=== PATIENT | male | born 1970 | race Caucasian/White ===

== ENCOUNTER 2018-02-16 14:57 | Emergency (ER) | payer MEDICAID ==
[~2018-02-16] VITALS: Ht 185.4 cm; Wt 133.9 kg
[~2018-02-16 14:57] MED LIST: CLIN150C2 PO; CLON-527 PO; NORCO10T PO
[2018-02-16 15:15] VITALS: BP 166/118
== END 2018-02-16 15:50 | disposition home or self-care (01) ==
LOC: ER 14:57
DX: S01.01XD Laceration without foreign body of scalp, subsequent encounter (principal); I10 Essential (primary) hypertension; F12.90 Cannabis use, unspecified, uncomplicated; Z90.49 Acquired absence of other specified parts of digestive tract; Z88.5 Allergy status to narcotic agent; Z79.2 Long term (current) use of antibiotics; Z79.899 Other long term (current) drug therapy; W22.8XXD Striking against or struck by other objects, subsequent encounter
CPT/HCPCS: 99281

== ENCOUNTER 2019-01-02 13:21 | Emergency (ER) | payer MEDICAID ==
[~2019-01-02] VITALS: Ht 185.4 cm; Wt 144.0 kg
[2019-01-02 14:55] VITALS: BP 143/88
[2019-01-02 15:19] LABS: ALBUMIN 3.4 G/DL (3.4-5.0); ANION GAP 6 (8-16); BLOOD UREA NITROGEN 16 MG/DL (7-18); BUN/CREATININE RATIO 16.5 (5.4-32.0); CALCIUM 8.4 MG/DL (8.5-10.1); CHLORIDE 107 MMOL/L (99-107); CREATININE 0.97 MG/DL (0.60-1.10); GLUCOSE 127 MG/DL (70-104); SODIUM 140 MMOL/L (135-145); TOTAL CARBON DIOXIDE 26.9 MMOL/L (24-32); eGFR 83 ML/MIN
[2019-01-02] MEDS ORDERED: FURO-150 PO (15:25)
[2019-01-02] MEDS ORDERED: POTA10TA19 PO (15:25)
== END 2019-01-02 16:00 | disposition home or self-care (01) ==
LOC: ER 13:21
DX: R60.0 Localized edema (principal); J98.01 Acute bronchospasm; F17.210 Nicotine dependence, cigarettes, uncomplicated; I10 Essential (primary) hypertension; F12.90 Cannabis use, unspecified, uncomplicated; Z90.49 Acquired absence of other specified parts of digestive tract; Z88.5 Allergy status to narcotic agent; Z79.2 Long term (current) use of antibiotics; Z79.899 Other long term (current) drug therapy
CPT/HCPCS: 36415; 80048; 99283

== ENCOUNTER 2019-01-31 08:02 | Emergency (ER) | payer MEDICAID ==
[~2019-01-31] VITALS: Ht 185.4 cm; Wt 143.0 kg
[~2019-01-31 08:02] MED LIST changes: +FURO-150 PO
[2019-01-31 08:36] LABS: CLARITY,URINE CLEAR (Clear); COLOR,URINE YELLOW (Yellow); GLUCOSE, URINE NEGATIVE (Neg); KETONES,URINE NEGATIVE (Neg); LEUKOCYTE ESTERASE ,URINE NEGATIVE (Neg); NITRITES, URINE NEGATIVE (Neg); OCCULT BLOOD,URINE NEGATIVE (Neg); PH,URINE 6.5 (4.8-8.0); PROTEIN,URINE NEGATIVE (Neg); UROBILINOGEN,URINE 0.2 E.U/dL (0.2-1.0)
[2019-01-31 08:38] LABS: UA COLLECTION TYPE CLN CATCH MIDSTREAM
[2019-01-31] MEDS ORDERED: ipratropium/albuterol 3ml nebule NEB ONE (08:50)
[2019-01-31 09:11] VITALS: BP 145/75
[2019-01-31] MEDS ORDERED: traMADol 50MG tablet PO ONE (09:15)
[2019-01-31] MEDS ORDERED: ketorolac trometh inj. 60 MG/2 ML VIAL IM ONE (09:15)
[2019-01-31] MEDS ORDERED: CELE-193 PO (09:19)
[2019-01-31] MEDS ORDERED: ALBU8.5H8 IH (09:19)
== END 2019-01-31 09:39 | disposition home or self-care (01) ==
LOC: ER 08:03
DX: M54.5 Low back pain (principal); J44.9 Chronic obstructive pulmonary disease, unspecified; F12.90 Cannabis use, unspecified, uncomplicated; F10.10 Alcohol abuse, uncomplicated; Z90.49 Acquired absence of other specified parts of digestive tract; Z98.890 Other specified postprocedural states; Z88.5 Allergy status to narcotic agent; Z79.899 Other long term (current) drug therapy; Y90.9 Presence of alcohol in blood, level not specified
CPT/HCPCS: 81003; 94640; 94760; 96372; 99283; J1885

== ENCOUNTER 2019-08-30 13:20 | Emergency (ER) | payer MEDICAID ==
[~2019-08-30] VITALS: Ht 185.4 cm; Wt 136.4 kg
[~2019-08-30 13:20] MED LIST changes: +ALBU8.5H8 IH; +CELE-193 PO
[2019-08-30 13:21] VITALS: BP 150/109
[2019-08-30 14:16] LABS: CLARITY,URINE CLOUDY (Clear); GLUCOSE, URINE NEGATIVE (Neg); KETONES,URINE NEGATIVE (Neg); LEUKOCYTE ESTERASE ,URINE TRACE (Neg); NITRITES, URINE NEGATIVE (Neg); OCCULT BLOOD,URINE NEGATIVE (Neg); PROTEIN,URINE TRACE mg/dl (Neg)
[2019-08-30 14:18] LABS: UA COLLECTION TYPE CLN CATCH MIDSTREAM
[2019-08-30 14:19] LABS: COLOR,URINE DARK YELLOW (Yellow)
[2019-08-30] MEDS ORDERED: penicillin G benzathine 1.2 million unit/2ml syringe IM ONE (14:20)
[2019-08-30] MEDS ORDERED: azithromycin 250mg tablet PO ONE (14:20)
[2019-08-30] MEDS ORDERED: LIDOcaine 1% W/epiNEPHrine 1:200,000 10ml vial IJ ONE (14:20)
[2019-08-30] MEDS ORDERED: CefTRIAXone 250MG IM Kit w/LIDOcaine IM ONE (14:20)
[2019-08-30 14:23] LABS: MUCUS STRANDS MANY /LPF (Neg); SQUAMOUS EPITHELIAL CELL,UR MANY /LPF (FEW)
[2019-08-30 14:24] LABS: TRANSITIONAL EPI CELLS,URINE FEW /HPF; WBC CLUMPS,URINE FEW /HPF (NEGATIVE)
[2019-08-30 14:30] LABS: TRICHOMONAS,URINE MOD /HPF (NEGATIVE)
[2019-08-30 14:31] LABS: BACTERIA,URINE NONE SEEN /HPF (Neg); RBC,URINE 0-2 /HPF (0-2); WBC,URINE 20-30 /HPF (0-4)
[2019-08-30 14:52] LABS: BASOPHILS % (AUTO) 0.5 % (0-1); EOSINOPHILS # (AUTO) 0.1 X10'3 (0-0.9); HEMATOCRIT 48.6 % (42.0-52.0); HEMOGLOBIN 16.3 g/dl (14.0-17.9); LYMPHOCYTES # (AUTO) 1.9 X10'3 (1.1-4.8); LYMPHOCYTES % (AUTO) 28.2 % (21-51); MEAN CORPUSCULAR HEMOGLOBIN 30.2 PG (27.0-31.0); MEAN CORPUSCULAR HGB CONC 33.4 g/dL (33.0-36.5); MEAN CORPUSCULAR VOLUME 90.2 FL (78-98); MEAN PLATELET VOLUME 9.1 FL (7.4-10.4); MONOCYTES # (AUTO) 0.7 X10'3 (0-0.9); MONOCYTES % (AUTO) 9.6 % (2-12); NEUTROPHILS # (AUTO) 4.1 X10'3 (1.8-7.7); NEUTROPHILS % (AUTO) 60.7 % (42-75); PLATELET COUNT 223 X10'3 (140-440); RED BLOOD COUNT 5.39 X10'6 (4.70-6.10); RED CELL DISTRIBUTION WIDTH 14.5 % (11.5-14.5); WHITE BLOOD COUNT 6.8 X10'3 (4.5-11.0)
[2019-08-30 15:10] LABS: ALANINE AMINOTRANSFERASE 34 U/L (12-78); ALBUMIN 3.6 G/DL (3.4-5.0); ALBUMIN/GLOBULIN RATIO 0.9 (1.1-1.5); ALKALINE PHOSPHATASE 82 IU/L (46-116); ANION GAP 9 (8-16); ASPARTATE AMINO TRANSFERASE 53 U/L (10-37); BILIRUBIN,TOTAL 0.3 MG/DL (0.1-1.0); BLOOD UREA NITROGEN 14 MG/DL (7-18); BUN/CREATININE RATIO 13.6 (5.4-32.0); CALCIUM 9.2 MG/DL (8.5-10.1); CHLORIDE 104 MMOL/L (99-107); CREATININE 1.03 MG/DL (0.60-1.10); GLUCOSE 98 MG/DL (70-104); POTASSIUM 3.9 MMOL/L (3.5-5.1); SODIUM 138 MMOL/L (135-145); TOTAL CARBON DIOXIDE 25.3 MMOL/L (24-32); TOTAL PROTEIN 7.4 G/DL (6.4-8.2); eGFR 77 ML/MIN
[2019-08-30] MEDS ORDERED: SULF1TAB49 PO (15:53)
[2019-08-30] MEDS ORDERED: CLOT30CR24 TOP (15:53)
[2019-08-30] MEDS ORDERED: METR-159 PO (15:53)
[2019-08-30 16:48] LABS: HIV ANTIBODY 1&2 RAPID NON-REACTIVE (Neg)
[2019-09-01 05:11] LABS: RPR Non Reactive (Non Reactive)
== END 2019-08-30 16:14 | disposition home or self-care (01) ==
LOC: ER 13:21
DX: L02.214 Cutaneous abscess of groin (principal); A59.8 Trichomoniasis of other sites; B35.3 Tinea pedis; E66.9 Obesity, unspecified; J44.9 Chronic obstructive pulmonary disease, unspecified; I10 Essential (primary) hypertension; F12.90 Cannabis use, unspecified, uncomplicated; Z90.49 Acquired absence of other specified parts of digestive tract; Z88.5 Allergy status to narcotic agent; Z79.899 Other long term (current) drug therapy
CPT/HCPCS: 10060; 36415; 80053; 81001; 85025; 86592; 86703; 87491; 87591; 96372; 99284; J0561; J0696

== ENCOUNTER 2020-03-18 12:57 | Emergency (ER) | payer MEDICAID ==
[~2020-03-18] VITALS: Ht 185.4 cm; Wt 136.4 kg
[~2020-03-18 12:57] MED LIST changes: +CLOT30CR24 TOP
[2020-03-18 13:23] VITALS: BP 140/113
== END 2020-03-18 14:12 | disposition home or self-care (01) ==
LOC: ER 12:57
DX: J02.9 Acute pharyngitis, unspecified (principal); J34.89 Other specified disorders of nose and nasal sinuses; R51.9 Headache, unspecified; R05 Cough; Z20.828 Contact with and (suspected) exposure to other viral communicable diseases; I10 Essential (primary) hypertension; J44.9 Chronic obstructive pulmonary disease, unspecified; F17.200 Nicotine dependence, unspecified, uncomplicated; F12.90 Cannabis use, unspecified, uncomplicated; F15.90 Other stimulant use, unspecified, uncomplicated; Z90.49 Acquired absence of other specified parts of digestive tract; Z98.890 Other specified postprocedural states; Z72.89 Other problems related to lifestyle; Z88.5 Allergy status to narcotic agent; Z79.2 Long term (current) use of antibiotics; Z79.899 Other long term (current) drug therapy
CPT/HCPCS: 36415; 87635; 99283

== ENCOUNTER 2020-06-08 20:35 | Emergency (ER) | payer MEDICAID ==
[~2020-06-08] VITALS: Ht 185.4 cm; Wt 147.0 kg
[2020-06-08 20:36] VITALS: BP 195/113
[2020-06-08] MEDS ORDERED: ondansetron 4mg rapidly disintigrating tab PO ONE (20:55)
[2020-06-08] MEDS ORDERED: meclizine 12.5mg tablet PO ONE (20:55)
[2020-06-08] MEDS ORDERED: MECL-184 PO (21:32)
[2020-06-08] MEDS ORDERED: ONDA4TAB6 PO (21:32)
== END 2020-06-08 21:42 | disposition home or self-care (01) ==
LOC: ER 20:35
DX: H81.10 Benign paroxysmal vertigo, unspecified ear (principal); R42 Dizziness and giddiness; R11.0 Nausea; I10 Essential (primary) hypertension; J44.9 Chronic obstructive pulmonary disease, unspecified; F12.90 Cannabis use, unspecified, uncomplicated; F15.90 Other stimulant use, unspecified, uncomplicated; Z90.49 Acquired absence of other specified parts of digestive tract; Z98.890 Other specified postprocedural states; Z72.89 Other problems related to lifestyle; Z88.5 Allergy status to narcotic agent; Z79.2 Long term (current) use of antibiotics; Z79.899 Other long term (current) drug therapy
CPT/HCPCS: 93005; 99283; J8597

== ENCOUNTER 2023-11-27 08:42 | Emergency (ER) | payer MEDICAID ==
[~2023-11-27] VITALS: Ht 185.4 cm; Wt 159.0 kg
[~2023-11-27 08:42] MED LIST changes: +ALBU8.5H17 IH; -ALBU8.5H8 IH; +MECL-231 PO; +ONDA4TAB6 PO
[2023-11-27] MEDS: albuterol 2.5 MG/3 ML nebule CONTNEB ONE (09:20)
[2023-11-27] MEDS: ipratropium/albuterol 3ml nebule NEB ONE (09:20)
[2023-11-27 09:21] VITALS: PULSE 96; RESP 18; O2SAT 89
[2023-11-27 09:42] VITALS: PULSE 110; RESP 13; O2SAT 95
[2023-11-27 10:09] LABS: BASOPHILS % (AUTO) 0.5 % (0-1); EOSINOPHILS % (AUTO) 0.2 % (0-6); HEMATOCRIT 46.9 % (42.0-52.0); HEMOGLOBIN 15.5 g/dl (14.0-17.9); LYMPHOCYTES # (AUTO) 1.1 X10'3 (1.1-4.8); LYMPHOCYTES % (AUTO) 13.3 % (21-51); MEAN CORPUSCULAR HEMOGLOBIN 30.2 PG (27.0-31.0); MEAN CORPUSCULAR HGB CONC 33.1 g/dL (33.0-36.5); MEAN CORPUSCULAR VOLUME 91.1 FL (78-98); MEAN PLATELET VOLUME 9.4 FL (7.4-10.4); MONOCYTES # (AUTO) 0.8 X10'3 (0-0.9); MONOCYTES % (AUTO) 9.5 % (2-12); NEUTROPHILS # (AUTO) 6.5 X10'3 (1.8-7.7); NEUTROPHILS % (AUTO) 76.5 % (42-75); PLATELET COUNT 212 X10'3 (140-440); RED BLOOD COUNT 5.14 X10'6 (4.70-6.10); RED CELL DISTRIBUTION WIDTH 14.8 % (11.5-14.5); WHITE BLOOD COUNT 8.5 X10'3 (4.5-11.0)
[2023-11-27 10:28] LABS: ALBUMIN 3.7 G/DL (3.4-5.0); ANION GAP 9 (8-16); BLOOD UREA NITROGEN 10 MG/DL (7-18); BUN/CREATININE RATIO 9.4 (10.0-20.0); CALCIUM 8.6 MG/DL (8.5-10.1); CHLORIDE 99 MMOL/L (99-107); CREATININE 1.06 MG/DL (0.60-1.10); GLUCOSE 118 MG/DL (70-104); POTASSIUM 3.8 MMOL/L (3.5-5.1); PRO BRAIN NATRIURETIC PEPTIDE 762 PG/ML (0-125); SODIUM 138 MMOL/L (135-145); TOTAL CARBON DIOXIDE 30.1 MMOL/L (24-32); eCRCL 92 ML/MIN; eGFR 73 ML/MIN
[2023-11-27] MEDS ORDERED: HYDR-3965 PO (13:24)
[2023-11-27] MEDS ORDERED: FLUT1BLS16 INH (13:24)
[2023-11-27 13:52] VITALS: BP 124/94; PULSE 96; RESP 20; TEMP 98.6; O2SAT 92
== END 2023-11-27 13:55 | disposition home or self-care (01) ==
LOC: ER 08:42
DX: S20.219A Contusion of unspecified front wall of thorax, initial encounter (principal); R06.00 Dyspnea, unspecified; I10 Essential (primary) hypertension; J44.9 Chronic obstructive pulmonary disease, unspecified; F12.90 Cannabis use, unspecified, uncomplicated; F15.90 Other stimulant use, unspecified, uncomplicated; Z88.5 Allergy status to narcotic agent; Z79.899 Other long term (current) drug therapy; Z79.2 Long term (current) use of antibiotics; Z90.49 Acquired absence of other specified parts of digestive tract; W19.XXXA Unspecified fall, initial encounter; Y93.89 Activity, other specified; Y92.89 Other specified places as the place of occurrence of the external cause; Y99.8 Other external cause status
CPT/HCPCS: 36415; 71046; 80048; 83605; 83880; 85025; 87040; 87077; 87186; 93005; 94640; 99285; A6258; 94760

== ENCOUNTER 2025-02-17 13:30 | Emergency (ER) | payer MEDICAID ==
[~2025-02-17] VITALS: Ht 185.4 cm; Wt 160.2 kg
[~2025-02-17 13:30] MED LIST changes: +FLUT1BLS16 INH
[2025-02-17 13:48] VITALS: TEMP 97.7
[2025-02-17] MEDS ORDERED: IBUP-1984 PO (16:04)
[2025-02-17] MEDS ORDERED: DOXY100C43 PO (16:04)
--- NOTE | 2025-02-17 16:04 | Physician Documentation ---
History of Present Illness ~ Chief Complaint: Abscess Stated Complaint: ABSCESS Time Seen by MD: 14:03 Primary Medical Doctor: juwan MCCOY 55-year-old morbidly obese male presents to the emergency department for evaluation of suspected infection to the left breast. Reports that his left breast was laptop a table several days ago and then developed redness and warmth and swelling. He has a proximally 0.5 cm fluctuant area on top of a 2 cm x 3 cm indurated region of the left breast. There was no nipple discharge. He denies B type symptoms. Tetanus Within 5 Years: No Medication Reconciliation Allergies: Coded Allergies: codeine (Unverified Allergy, Unknown, CAN TAKE NORCO, 02/17/25) Scheduled Celecoxib (Celebrex), 100 MG PO BID Clindamycin (Cleocin ), 300 MG PO Q6H Clonazepam* (Klonopin*), 1 MG PO BID, (Reported) Clotrimazole (Clotrimazole), 1 APPLIC TOP Q12H Doxycycline Monohydrate (Doxycycline Monohydrate), 100 MG PO BID Fluticasone/Umeclidin/Vilanter (Trelegy Ellipta 200-62.5-25), 1 PUFFS INH DAILY Furosemide (Lasix), 1 TAB PO DAILY Hydrocodone Bit/Acetaminophen 10/325 MG* ([place] 10/325 MG*), 1 TAB PO Q4H Ibuprofen* (Motrin*), 400 MG PO Q8H Meclizine Hcl (Meclizine Hcl), 1-2 TABLET PO TID Ondansetron Hcl (Zofran), 1-2 TAB PO Q6H Scheduled PRN Albuterol Sulfate (Proair Hfa), 2 PUFFS IH Q4H PRN for SOB or wheezing Past Medical History Past Medical History: Hypertension, Asthma, COPD Past Surgical History: cholecystectomy, other Alcohol Use: Sober Drug Use: marijuana, methamphetamine Lives In: Home Review of Systems All Other Systems at this time: Reviewed and Negative Integumentary: Reports: rash Physical Exam Vital Signs: Temperature: 97.7, Source: Temporal, Heart Rate: 79, Respiratory Rate: 20, BP: 153/88, Pulse Oximetry: 95, Weight: 160.230 General Appearance: alert, WD/WN, mild distress EENT: normal ENT inspection Neck: normal inspection Cardiovascular: regular rate, rhythm Respiratory: no respiratory distress Skin: other (Mild erythema 2 x 3 cm with central 0.5 cm fluctuance at the 8 o'clock position to the nipple) Neurologic: oriented x4 Lymphatic: normal inspection Psychiatric: normal mood/affect Progress Results/Orders Results/Orders Vital Signs 02/17/25 02/17/25 13:48 16:29 Temp 97.7 Pulse 79 81 Resp 20 18 B/P (MAP) 153/88 145/104 Pulse Ox 95 96 Medical Decision Making Additional Comment 55-year-old immunocompetent male with early cellulitis as evidenced by mild induration with 0.5 cm fluctuant region that likely represents abscess. No clear indication today for incision and drainage. Stable for outpatient antibiotics with doxycycline and recommendations for more soaks. Strict follow up guidelines to include for 8-72 hours and/or return if sooner. Departure Disposition: 01 HOME / SELF CARE / HOMELESS Impression: Primary Impression: Cellulitis Qualified Codes: L03.313 - Cellulitis of chest wall Condition: Stable Discharge Instructions: Cellulitis, Adult, [id number] Additional Instructions: Please begin antibiotic as directed and take ibuprofen for discomfort. Please make follow up appointment with your primary care physician and/or return to the emergency department 40-72 hours for follow up. Thank you for choosing the emergency department [facility]. Referrals: NO PRIMARY CARE PROVIDER (PCP) Prescriptions Ibuprofen* (Motrin*) 400 Mg Tablet 400 MG PO Q8H, #20 TAB Prov: MILA TATE 02/17/25 Doxycycline Monohydrate (Doxycycline Monohydrate) 100 Mg Capsule 100 MG PO BID for 10 Days, #20 CAP may sub doxycycline hyclate or azithromycin z-pack as prescribed Prov: MILA TATE 02/17/25 Education Educated: Patient Educated regarding: diagnosis, treatment, prognosis, need for follow up Signature Scribe Signature: . Attestation: . MILA TATE Feb 17, 2025 16:04
[2025-02-17 16:29] VITALS: BP 145/104; PULSE 81; RESP 18; O2SAT 96
== END 2025-02-17 16:33 | disposition home or self-care (01) ==
LOC: ER 13:31
DX: L03.313 Cellulitis of chest wall (principal); J44.9 Chronic obstructive pulmonary disease, unspecified; I10 Essential (primary) hypertension; F12.90 Cannabis use, unspecified, uncomplicated; F15.90 Other stimulant use, unspecified, uncomplicated; Z88.5 Allergy status to narcotic agent; Z88.8 Allergy status to other drugs, medicaments and biological substances; Z90.49 Acquired absence of other specified parts of digestive tract
CPT/HCPCS: 99283